=== PATIENT | male | born 1975 | race Caucasian/White ===

== ENCOUNTER → 2017-09-30 15:18 | Outpatient (CLI) | payer OTHER, SELFPAY ==
--- NOTE | 2017-09-30 15:27 | XR_ITS ---
XR elbow LT min 3V HISTORY: Left elbow pain ITS.REASON: Left tennis elbow ORDERING PHYSICIAN: Nestor Gil MD PATIENT AGE: 41 years COMPARISON: None FINDINGS: No fracture or dislocation. The joint space is well-preserved. No lytic or blastic change or significant arthritic change. No obvious displaced fat pad. There is a small enthesophyte at the olecranon and there is minimal spurring of the coracoid process. IMPRESSION: 1. No acute finding. 2. Minimal spurring of the coracoid process
--- NOTE | 2017-09-30 15:27 | XR_ITS ---
XR wrist RT min 3V HISTORY: ITS.REASON: Right wrist pain ORDERING PHYSICIAN: Nestor Gil MD PATIENT AGE: 41 years COMPARISON: None FINDINGS: Postsurgical changes are present with a bone plate along the distal radius. There are no previous exam available for comparison. Decreased density is present along the distal aspect of the radius 1.3 cm proximal to the articular surface. There are multiple screws present in the bone plate. The bone plate appears discontinuous at its distal and central aspect. Please correlate with prior films to confirm this is merely when the bone plate was manufactured or due to fracture of the bone plate. There is an oblique lucency of the distal radius laterally. This could represent a new fracture. Correlation with old films are needed. There are only 4 metacarpals and fingers. What appears to represent the scaphoid is hypoplastic. There is fusion of the proximal and mid phalange ease of the first and second digits. Hypoplastic changes are present involving the distal ulna. No acute fracture or dislocation. IMPRESSION: 1. No acute finding. 2. 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 Please see above for detail. 3. Postsurgical changes of the distal radius with possible nondisplaced oblique fracture of the distal radius laterally. Old films are needed for comparison.
== END ==
PROVIDERS: Visit Provider Orthopaedic Surgery
DX: M25.531 Pain in right wrist (principal); M77.12 Lateral epicondylitis, left elbow
CPT/HCPCS: 73080; 73110